=== PATIENT | female | born 1940 | race Caucasian/White ===

== ENCOUNTER 2023-06-13 23:47 | Emergency (ER) | payer MEDICARE, OTHER ==
[~2023-06-13] VITALS: Ht 160 cm; Wt 92.0 kg
[~2023-06-13 23:47] MED LIST: ALB0.5UD NEB; ALEN70TA60 PO; ASPI-1264 PO; DOCU100C40 PO; LEVO112T52 PO; LISI20TA28 PO; META-25 PO; PANT40TA54 PO
[2023-06-13 23:49] VITALS: TEMP 97.4
[2023-06-14] MEDS ORDERED: albuterol 2.5 MG/3 ML nebule NEB ONE (01:10)
[2023-06-14] MEDS ORDERED: ipratropium 0.5 MG/2.5ML nebule IH ONE (01:10)
[2023-06-14 01:50] VITALS: PULSE 76; RESP 16; O2SAT 96
[2023-06-14 02:00] VITALS: PULSE 77; RESP 16; O2SAT 98
[2023-06-14 03:03] VITALS: BP 115/65; PULSE 107; O2SAT 93
== END 2023-06-14 03:05 | disposition home or self-care (01) ==
LOC: ER 23:48
DX: J45.901 Unspecified asthma with (acute) exacerbation (principal); R22.43 Localized swelling, mass and lump, lower limb, bilateral; Z79.899 Other long term (current) drug therapy; Z79.82 Long term (current) use of aspirin
CPT/HCPCS: 94640; 94760; 99283